=== PATIENT | female | born 1995 | race Two or more races ===

== ENCOUNTER 2019-06-07 23:10 | Inpatient (IN) | payer MEDICAID ==
[~2019-06-07] VITALS: Ht 167.6 cm; Wt 73.9 kg
[2019-06-08] MEDS ORDERED: LACTATED RINGER'S 1,000 ML IV SCH (00:40)
[2019-06-08] MEDS ORDERED: LACT. RINGERS/OXYTOCIN 20UNITS 1,000 ML IV SCH (00:40)
[2019-06-08] MEDS ORDERED: PHISODERM TOP SOLN 240ML BTL TOP PRN (00:45)
[2019-06-08] MEDS ORDERED: CARBOPROST TROMETHAMINE 250 MCG/1ML VIAL IM PRN (00:45)
[2019-06-08] MEDS ORDERED: LIDOCAINE 2%HCL (LOCAL ANESTH.) INJ 20ML MDV ID ONE (00:45)
[2019-06-08] MEDS ORDERED: METHYLERGONOVINE MALEATE 0.2 MG/ML AMP IM PRN (00:45)
[2019-06-08] MEDS ORDERED: WITCH HAZEL-GLYCERIN PAD TOP PRN (00:45)
[2019-06-08] MEDS ORDERED: DERMOPLAST 60ML BOTTLE TOP PRN (00:45)
[2019-06-08 01:37] LABS: Basophils # (auto) 0 10 ^3/uL (0-0.2); Basophils % (auto) 0.3 % (0.0-2.0); Eosinophils # (auto) 0 10 ^3/uL (0-0.8); Eosinophils % (auto) 0.2 % (0.0-7.0); Hematocrit 31.3 % (36.0-46.0); Hemoglobin 10.3 g/dL (12.2-16.2); Lymphocytes # (auto) 1.9 10 ^3/uL (0.4-5.4); Lymphocytes % (auto) 10.7 % (10.0-50.0); Mean Corpuscular Hemoglobin 28.3 pg (28.0-32.0); Mean Corpuscular Hgb Conc. 32.9 g/dL (32.0-36.0); Monocytes # (auto) 1.1 10 ^3/uL (0-1.3); Monocytes % (auto) 6.2 % (0.0-12.0); Neutrophils # (auto) 14.4 10 ^3/uL (1.6-8.6); Neutrophils % (auto) 82.6 % (37.0-80.0); Platelet Count (auto) 271 10^3/uL (140-450); Red Blood Cells 3.65 10^6/uL (4.0-5.20); Red Cell Distribution Width 16.1 % (11.8-14.3); White Blood Cell 17.4 10^3/uL (4.4-10.8)
[2019-06-08 01:53] LABS: Albumin 2.4 g/dL (3.4-5.0); BUN/Creatinine Ratio 12.2; Calcium 9.1 mg/dL (8.5-10.1); INR 0.95 (0.9-1.15); Partial Thromboplastin Time 26.5 sec (23.64-32.05); Potassium 3.8 mmol/L (3.5-5.1)
[2019-06-08 01:55] LABS: Alcohol, Urine < 3.0 mg/dL (0-5); Amphetamine Screen, Urine NEGATIVE (NEGATIVE); Barbiturate Scree,Urine NEGATIVE (NEGATIVE); Benzodiazephine Screen, Urine NEGATIVE (NEGATIVE); Cannabinoid Screen, Urine NEGATIVE (NEGATIVE); Cocaine Screen, Urine NEGATIVE (NEGATIVE); Opiate Scree,Urine NEGATIVE (NEGATIVE); Phencyclidine Screen, Urine NEGATIVE (NEGATIVE)
[2019-06-08 01:56] LABS: Bilirubin, Total 0.2 mg/dL (0.2-1.0); Total Protein 6.6 g/dL (6.4-8.2)
[2019-06-08 02:00] LABS: Urine Bacteria FEW /hpf (None Seen); Urine Blood 1+ /uL (Negative); Urine Specific Gravity 1.003 (1.001-1.035); Urine WBC 2 /hpf (0 - 5)
[2019-06-08] MEDS ORDERED: ACETAMINOPHEN 325 MG TAB PO PRN (03:30)
--- NOTE | 2019-06-08 04:30 | NUR ---
Ambulation: Patient OOB with standby assistance by RN. Patient ambulated to bathroom with steady gait. Patient able to void without difficulty. Pericare teaching provided with returned demonstration by patient. Clean gown provided and bed linen changed. Patient ambulated back to bed with steady gait and no distress noted.
[2019-06-08] MEDS: IBUPROFEN 600 MG TAB PO PRN ×3 (06:51→18:01)
[2019-06-08 07:00] VITALS: BP 113/58
--- NOTE | 2019-06-08 07:00 | NUR ---
Reviewed plan of care, Safety, Goals care of . FOB at bedside. Initiated assessment. Se flowsheet for complete data.
[2019-06-08 11:15] VITALS: BP 112/62
--- NOTE | 2019-06-08 15:12 | NUR ---
Endorsed care to Misael Rehman RN
[2019-06-08 15:30] VITALS: BP 112/60
[2019-06-08 18:56] VITALS: BP 111/70
[2019-06-08] MEDS ORDERED: PREN-96 PO (19:23)
[2019-06-08 23:00] VITALS: BP 133/76
[2019-06-09 02:50] VITALS: BP 121/70
[2019-06-09 06:06] LABS: RPR Non Reactive (Non Reactive)
--- NOTE | 2019-06-09 06:40 | NUR ---
GIORGI Stoddard at bedside. Pt sleeping, eyes closed.
--- NOTE | 2019-06-09 06:57 | NUR ---
Patient sleeping, eyes. No distress noted. Will assess when pt awake alert.
[2019-06-09 08:10] VITALS: BP 121/82
--- NOTE | 2019-06-09 08:30 | NUR ---
Assessment completed.See flowsheet for data.
--- NOTE | 2019-06-09 10:00 | NUR ---
In depth discharge instructions completed by this RN. All questions answered. [facility] at 1000am. All questions answered.
--- NOTE | 2019-06-09 10:45 | NUR ---
Hearing screen in process.
--- NOTE | 2019-06-09 11:00 | NUR ---
Hearing screen completed.
[2019-06-09] MEDS: IBUPROFEN 600 MG TAB PO PRN (11:55)
--- NOTE | 2019-06-09 12:01 | NUR ---
Both MOB and FOB demonstrated effective placement of the in carseat.
--- NOTE | 2019-06-09 12:07 | NUR ---
With steady gate and all personal belongings pt ambulated off unit denying pain.
== END 2019-06-09 12:07 | disposition home or self-care (01) | DRG 560 ==
LOC: OBSVTOIN 23:10 → LDRP 23:10
PROVIDERS: ADMIT Specialist; ATTEND Specialist
PROC: 10E0XZZ Delivery of Products of Conception, External Approach (ICD-10-PCS; principal; 2019-06-08)
PROC: 0KQM0ZZ Repair Perineum Muscle, Open Approach (ICD-10-PCS; 2019-06-08)
DX: O32.6XX0 Maternal care for compound presentation, not applicable or unspecified (principal); O70.1 Second degree perineal laceration during delivery; Z37.0 Single live birth; Z3A.38 38 weeks gestation of pregnancy
CPT/HCPCS: 36415; 59025; 59409; 80053; 80307; 81001; 81002; 84112; 85025; 85610; 85730; 86592; 86850; 86900; 86901; 96365; 96366; G0378; J2590

== ENCOUNTER 2019-06-07 23:43 | Emergency (ER) | payer MEDICAID ==
[2019-06-08] MEDS ORDERED: PREN-96 PO (19:23)
== END 2019-06-07 23:49 | disposition home or self-care (01) ==
LOC: ER 23:44
DX: O26.893 Other specified pregnancy related conditions, third trimester (principal); Z3A.38 38 weeks gestation of pregnancy